=== PATIENT | male | born 1930 | race Caucasian/White ===

== ENCOUNTER 2016-05-17 09:46 | Emergency (ER) | payer OTHER ==
[~2016-05-17 09:46] MED LIST: ALBU8I INH; ASCO500C PO; ASPI325T PO; ATOR10TA PO; CARV3.125 PO; CERTTAB6 PO; DILTCD120 PO; EXTR500C PO; FURO20 PO; GLUCCAP13 PO; LEVO100T4 PO; LUTEIN; MEGE40SU PO; POTA20IN3 PO; PREG75 PO; TYLE500T PO; [UNRECOGNIZED DRUG - OTHER]
[2016-05-17 09:51] VITALS: BP 104/53; PULSE 87; RESP 20; TEMP 98.1; O2SAT 93
[2016-05-17] MEDS ORDERED: SODIUM CHLORIDE 0.9% FLUSH 10 ML FLUSH IVF PRN (10:00)
[2016-05-17] MEDS ORDERED: SODIUM CHLORID 0.9% 500 ML INJ 500 ML IV ONE (10:00)
--- NOTE | 2016-05-17 10:11 | PD ---
HPI Chief Complaint: General Weakness Time Seen by Provider: 09:51 Travel History International Travel<30 days: No Contact w/Intl Traveler<30days: No Traveled to known affect area: No History of Present Illness HPI This is an 85-year-old male who has a history of lung cancer with subsequent dysphagia and a feeding tube who is a jail resident who presents to the emergency department reporting generalized weakness, constant, long-standing, associated with some chills. He says he has been weak for 2-3 years. The patient does have any focal complaints but has a lot to say about not having a lot to live for anymore. He wishes he could take care of his who has advanced dementia. Sometimes he gets frustrated with her and he feels bad about it. He feels very helpless in his life. He denies any suicidal ideation. PFSH Past Medical History Hx Anticoagulant Therapy: Yes Arthritis: Yes (BOTH HANDS AND LEFT KNEE ) Asthma: No Autoimmune Disease: No Blood Disorders: Yes (BLOOD CLOTS) Heart Rhythm Problems: No Cancer: Yes (R LUNG CANCER) Cardiovascular Problems: Yes (htn on meds) High Cholesterol: Yes Chemotherapy: Yes Chest Pain: No Congestive Heart Failure: No COPD: No Cerebrovascular Accident: No Diabetes: No Diminished Hearing: No Endocrine: Yes Gastrointestinal Disorders: No Genitourinary: No Headaches: No Hypertension: Yes Immune Disorder: No Implanted Vascular Access Dvce: No Musculoskeletal: Yes Neurologic: Yes Psychiatric: No Reproductive: No Respiratory: Yes Migraines: No Radiation Therapy: Yes (ADRENAL GLAND AND CHEST ) Seizures: No Shingles: Yes Sleep Apnea: No Thyroid Disease: Yes (HYPOTHYROID ) Past Surgical History Abdominal Surgery: Yes (APPENDECTOMY ) Appendectomy: Yes Cardiac Surgery: Yes (STENTS BILATERAL LEGS ) Ear Surgery: No Endocrine Surgery: No Eye Surgery: No Genitourinary Surgery: Yes (TESTICLE REMOVAL ) Gynecologic Surgery: No Neurologic Surgery: No Oral Surgery: Yes (TONSILLECTOMY ) Thoracic Surgery: Yes (spontaneous pneumo/R UPPER LOBE REMOVED ) Tonsillectomy: Yes Other Surgery: Yes (stents in both legs (behind knee) ) Social History Alcohol Use: No Tobacco Use: No Substance Use: No Allergies-Medications (Allergen,Severity, Reaction): Coded Allergies: Penicillin (Verified Allergy, Unknown, 05/17/16) Reported Meds & Prescriptions Reported Meds & Active Scripts Active Active Prescriptions or Reported Medications Unobtainable Review of Systems Except as stated in HPI: all other systems reviewed are Neg Physical Exam Narrative GENERAL: Frail elderly male tearful SKIN: Warm and dry. HEAD: Atraumatic. Normocephalic. EYES: Pupils equal and round. No injection or drainage. ENT: Moist mucous membranes NECK: Trachea midline. CARDIOVASCULAR: Regular rate and rhythm. No murmur appreciated. RESPIRATORY: Clear to auscultation. Breath sounds equal bilaterally. GASTROINTESTINAL: Abdomen soft, non-tender, nondistended. PEG tube is in place. MUSCULOSKELETAL: No obvious deformities. NEUROLOGICAL: Awake and alert. No obvious cranial nerve deficits. Moving all extremities. PSYCHIATRIC: Tearful, depressed mood with no suicidal ideation Data Data Last Documented VS Vital Signs Date Time Temp Pulse Resp B/P Pulse Ox O2 Delivery O2 Flow Rate FiO2 05/17/16 10:42 77 20 110/67 99 05/17/16 09:51 98.1 Orders Complete Blood Count With Diff (05/17/16 10:00) Comprehensive Metabolic Panel (05/17/16 10:00) Urinalysis - C+S If Indicated (05/17/16 10:00) Chest, Single Ap (05/17/16 10:00) Blood Glucose (05/17/16 10:00) Ecg Monitoring (05/17/16 10:00) Iv Access Insert/Monitor (05/17/16 10:00) Cath For Specimen (05/17/16 10:00) Oximetry (05/17/16 10:00) Sodium Chloride 0.9% Flush (Ns Flush) (05/17/16 10:00) Sodium Chlorid 0.9% 500 Ml Inj (Ns 500 M (05/17/16 10:00) Labs Laboratory Tests Test 05/17/16 05/17/16 10:10 10:30 White Blood Count 7.2 TH/MM3 Red Blood Count 3.67 MIL/MM3 Hemoglobin 10.1 GM/DL Hematocrit 31.2 % Mean Corpuscular Volume 85.1 FL Mean Corpuscular Hemoglobin 27.7 PG Mean Corpuscular Hemoglobin 32.5 % Concent Red Cell Distribution Width 15.2 % Platelet Count 215 TH/MM3 Mean Platelet Volume 9.1 FL Neutrophils (%) (Auto) 69.6 % Lymphocytes (%) (Auto) 18.7 % Monocytes (%) (Auto) 9.6 % Eosinophils (%) (Auto) 1.8 % Basophils (%) (Auto) 0.3 % Neutrophils # (Auto) 5.1 TH/MM3 Lymphocytes # (Auto) 1.3 TH/MM3 Monocytes # (Auto) 0.7 TH/MM3 Eosinophils # (Auto) 0.1 TH/MM3 Basophils # (Auto) 0.0 TH/MM3 CBC Comment DIFF FINAL Differential Comment Sodium Level 140 MEQ/L Potassium Level 4.1 MEQ/L Chloride Level 99 MEQ/L Carbon Dioxide Level 32.9 MEQ/L Anion Gap 8 MEQ/L Blood Urea Nitrogen 42 MG/DL Creatinine 1.30 MG/DL Estimat Glomerular Filtration 52 ML/MIN Rate Random Glucose 121 MG/DL Calcium Level 9.2 MG/DL Total Bilirubin 0.3 MG/DL Aspartate Amino Transf 15 U/L (AST/SGOT) Alanine Aminotransferase 18 U/L (ALT/SGPT) Alkaline Phosphatase 110 U/L Total Protein 7.0 GM/DL Albumin 3.2 GM/DL Urine pH 7.0 Urine Protein TRACE mg/dL Urine Glucose (UA) NEG mg/dL Urine Ketones NEG mg/dL Urine Occult Blood NEG Urine Nitrite NEG Urine Bilirubin NEG Urine Leukocyte Esterase NEG MDM Medical Decision Making Medical Screen Exam Complete: Yes Emergency Medical Condition: Yes Interpretation(s) Afebrile, no tachycardia, normotensive Anemia improved from prior BUN is 42 Urinalysis: No infection Chest x-ray unchanged Differential Diagnosis Anemia, electrolyte abnormality, urinary tract infection, pneumonia Narrative Course This is an 85-year-old male who presents to the emergency department with multiple nonspecific complaints. He seems to really be here because he is depressed. He is very tearful when he talks about his and his current medical situation. I don't think he is suicidal but I do think he requires urgent outpatient psychiatric follow-up there with this and his discharge instructions. Otherwise labs were obtained and urinalysis was negative for infection. I think he's safe for discharge. Diagnosis Primary Impression: Depression Qualified Code: F32.9 - Reactive depression Patient Instructions: General Instructions Additional Instructions: It is very important that this patient follows up with a psychiatrist regarding depression. If he has thoughts of hurting himself or others he should return to the emergency department. Med/Other Pt SpecificInfo: No Change to Meds Scripts Unable to Obtain Active Prescriptions or Reported Meds Disposition: 01 DISCHARGE HOME Condition: Stable Camila Rosa MD May 17, 2016 10:11
[2016-05-17 10:20] VITALS: O2SAT 97
[2016-05-17 10:32] LABS: CHLORIDE 99 MEQ/L (98-107); POTASSIUM 4.1 MEQ/L (3.5-5.1); SODIUM (NA) 140 MEQ/L (136-145)
[2016-05-17 10:33] LABS: AUTOMATED NEUTROPHIL # 5.1 TH/MM3 (1.8-7.7); BASOPHIL % 0.3 % (0.0-2.0); EOSINOPHIL # 0.1 TH/MM3 (0-0.4); EOSINOPHIL % 1.8 % (0.0-4.0); HEMATOCRIT 31.2 % (39.0-51.0); HEMO FLAGS DIFF FINAL; LYMPH % 18.7 % (9.0-44.0); LYMPHOCYTE # 1.3 TH/MM3 (1.0-4.8); MEAN CELL VOLUME 85.1 FL (80.0-100.0); MEAN CORPUSCULAR HEMOGLOBIN 27.7 PG (27.0-34.0); MEAN CORPUSCULAR HGB CONC 32.5 % (32.0-36.0); MONO % 9.6 % (0.0-8.0); NEUT % 69.6 % (16.0-70.0); PLATELET COUNT 215 TH/MM3 (150-450); RED BLOOD COUNT 3.67 MIL/MM3 (4.50-5.90); RED CELL DISTRIBUTION WIDTH 15.2 % (11.6-17.2); WHITE BLOOD COUNT 7.2 TH/MM3 (4.0-11.0)
[2016-05-17 10:36] LABS: ANION GAP 8 MEQ/L (5-15); BICARBONATE 32.9 MEQ/L (21.0-32.0); BLOOD UREA NITROGEN 42 MG/DL (7-18)
[2016-05-17 10:39] LABS: ALT (GPT) 18 U/L (12-78); AST (GOT) 15 U/L (15-37); GLOMERULAR FILTRATION RATE 52 ML/MIN (>89)
[2016-05-17 10:40] LABS: TOTAL BILIRUBIN ADULT 0.3 MG/DL (0.2-1.0)
[2016-05-17 10:42] VITALS: BP 110/67; PULSE 77; RESP 20; O2SAT 99
[2016-05-17 10:42] LABS: ALKALINE PHOSPHATASE 110 U/L (45-117)
--- NOTE | 2016-05-17 10:46 | RADHPO ---
EXAM DATE/TIME: 05/17/2016 10:23 [facility] COMPARISON: CHEST SINGLE AP, July 16, 2015, 11:12. INDICATIONS : Chest pain, short of breath. MEDICAL HISTORY : Carcinoma, lung. SURGICAL HISTORY : right lobectomy ENCOUNTER: Initial ACUITY: 3 days PAIN SCORE: 2/10 LOCATION: Bilateral chest FINDINGS: Single AP view of the chest. Right upper lung zone opacity and volume loss again seen. No significant interval change from prior study of 07/16/2015. The lungs are otherwise clear. Cardiomediastinal silh ouette unchanged. No evidence of pleural effusion or pneumothorax. CONCLUSION: Chronic right upper lung opacity and volume loss. No acute cardiopulmonary disease identified. Nathaniel Manuel MD on May 17, 2016 at 10:44 Board Certified Radiologist. This report was verified electronically.
[2016-05-17 10:52] LABS: BLOOD, URINE NEG (NEG); GLUCOSE,URINE NEG (NEG); KETONE, URINE NEG (NEG); NITRITE,URINE NEG (NEG)
[2016-05-17 11:00] LABS: METHOD OF COLLECTION CATH; URINE COLOR YELLOW (YELLW/STRAW)
[2016-05-17 11:02] LABS: COMMENT (UR) CULT NOT INDICATED; CULTURE IF INDICATED CULT NOT INDICATED; SQUAMOUS EPITHELIAL CELL URINE 0-5 /hpf (0-5)
== END 2016-05-17 11:38 | disposition home or self-care (01) ==
LOC: PHED 09:46
DX: F32.9 Major depressive disorder, single episode, unspecified (principal); I10 Essential (primary) hypertension; E78.00 Pure hypercholesterolemia, unspecified; E03.9 Hypothyroidism, unspecified; Z79.01 Long term (current) use of anticoagulants
CPT/HCPCS: 71010; 80053; 81001; 85025; 96360; 99285; J7040; P9612